=== PATIENT | female | born 1970 | race Caucasian/White ===

== ENCOUNTER → 2024-10-30 | Outpatient (CLI) | payer BC | END | disposition home or self-care (01) | LOC: RAD 06:42 | PROVIDERS: ATTEND Orthopaedic Surgery Hand Surgery | DX: M19.042 Primary osteoarthritis, left hand (principal); M25.841 Other specified joint disorders, right hand; I70.90 Unspecified atherosclerosis; M79.641 Pain in right hand; M79.642 Pain in left hand | CPT/HCPCS: 73130 ==